=== PATIENT | female | born 1950 | race Caucasian/White ===

== ENCOUNTER 2018-06-23 07:25 | Observation (INO) ==
[2018-06-23] MEDS ORDERED: Aspirin 325 MG Tablet PO ONE (07:48)
--- NOTE | 2018-06-23 07:54 | ED ---
HPI General Chief complaint: Chest Pain Stated complaint: Chest pain Time Seen by Provider: 06/23/18 07:29 Source: patient Mode of arrival: ambulatory Limitations: no limitations History of Present Illness HPI narrative: 67yo F with morbid obesity, former cig smoker, melanoma s/p incision not on any treatment here with c/o chest pain that is intermittent. Said she had a feeling that an elephant was sitting her her chest yesterday. It is pressure, left sided, nonradiating and associated with sob. Intermittent pain, moderate severity. Took her blood pressure yesterday and it was very elevated which may her anxious. Took it today and also elevated. Denies history of elevated blood pressure. +Dry cough. Denies any fever, n/v, abdominal pain, focal weakness or numbness. Denies any history of PE, DVT, hemoptysis, recent surgery. Related Data Home Medications Medication Instructions Recorded Confirmed citalopram [Celexa] 20 mg PO DAILY 06/24/18 06/24/18 Allergies Allergy/AdvReac Type Severity Reaction Status Date / Time diatrizoate meglumine Allergy Severe SNEEZING Verified 06/23/18 07:41 gadobenic acid Allergy Severe SNEEZING Verified 06/23/18 07:41 gadodiamide Allergy Severe SNEEZING Verified 06/23/18 07:41 gadoteridol Allergy Severe SNEEZING Verified 06/23/18 07:41 iodixanol Allergy Severe SNEEZING Verified 06/23/18 07:41 iohexol Allergy Severe SNEEZING Verified 06/23/18 07:41 propoxyphene Allergy Severe RASH,FEVER Verified 06/23/18 07:41 Review of Systems ROS: all other systems reviewed are negative [facility] Medical History Medical History Anxiety (Acute) H/O: hysterectomy (Acute) Melanoma in situ of back (Acute) Sleep apnea (Acute) Surgical History Surgical History Gastric bypass status for obesity (Acute) H/O hernia repair (Acute) Social History Social History Substance History: No History of Abuse Second Hand Smoke Exposure: No Smoking Status: Former smoker Tobacco Type: Cigarettes How Often Do You Have a Drink Containing Alcohol: Monthly or less Recent Travel in [facility] within the Last 8 Weeks: No Recent Out of Country Travel within the Last 8 Weeks: No Exam Narrative Exam Narrative: GENERAL: 67yo F in mild distress. SKIN: Focused skin assessment warm/dry. HEAD: Atraumatic. Normocephalic. EYES: Pupils equal and round. No scleral icterus. No injection or drainage. ENT: No nasal bleeding or discharge. Mucous membranes pink and moist. NECK: Trachea midline. No JVD. CARDIOVASCULAR: Regular rate and rhythm. No murmur appreciated. RESPIRATORY: No accessory muscle use. Clear to auscultation. Breath sounds equal bilaterally. GASTROINTESTINAL: Abdomen soft, non-tender, nondistended. MUSCULOSKELETAL: No obvious deformities. No clubbing. No cyanosis. No edema. NEUROLOGICAL: Awake and alert. No obvious cranial nerve deficits. Motor grossly within normal limits in all extremities. Sensation intact. Normal speech. PSYCHIATRIC: Appropriate mood and affect; insight and judgment normal. Course Initial Documented Vital Signs Temperature 99 F 06/23/18 07:37 Pulse Rate 77 06/23/18 07:37 Respiratory Rate 24 06/23/18 07:37 Blood Pressure 134/100 H 06/23/18 07:37 Pulse Oximetry 97 06/23/18 07:37 Last Documented Vital Signs Temperature 96.9 F L 06/24/18 12:00 Pulse Rate 79 06/24/18 12:00 Respiratory Rate 20 06/24/18 12:00 Blood Pressure 161/72 H 06/24/18 12:00 Pulse Oximetry 93 L 06/24/18 12:00 Medical Decision Making [facility] Narrative Medical decision making narrative: 67yo F with morbid obesity here with chest pain and elevated blood pressure at home. Said chest discomfort started on Thursday after a dear friend . However, started checking her blood pressure at home yesterday. She has significant cardiac comorbidities so will obtain, labs including cardiac enzyme and CXR. Denies any sliver lapper or MO before. Never had this chest pain. Labs reviewed, no leukocytosis. H/H normal. BMP unremarkable. Troponin negative. CXR showed cardiomegaly with mild interstitial edema. Pt said she gets sob with walking but she is also morbidly obese. Will add BNP. Pt given aspirin and 1 sublingual nitro which helped with pain. At this time, will admit pt for observation for chest pain center for serial EKG and cardiac enzyme. Discussed with Dr. Crow and accepted to his service. Medical Screen Exam Complete: Yes Emergency Medical Condition: Yes Differential Diagnosis Differential Diagnosis: ACS vs. GERD vs. anxiety vs. musculoskeletal pain Lab Data Result diagrams: 06/23/18 08:15 06/23/18 08:15 Lab Results 06/23/18 06/23/18 06/23/18 Range/Units 06:46 08:15 08:15 CBC w Diff Auto diff final WBC 7.3 (4.0-11.0) th/mm3 RBC 4.62 (4.00-5.30) mil/mm3 Hgb 12.4 (11.6-15.3) gm/dL Hct 37.6 (35.0-46.0) % MCV 81.4 (80.0-100.0) fL MCH 27.0 (27.0-34.0) pg MCHC 33.1 (32.0-36.0) % RDW 13.4 (11.6-17.2) % Plt Count 315 (150-450) th/mm3 MPV 8.3 (7.0-11.0) fL Neut % (Auto) 63.0 (16.0-70.0) % Lymph % (Auto) 27.2 (9.0-44.0) % [place] % (Auto) 5.8 (0.0-8.0) % Eos % (Auto) 3.0 (0.0-4.0) % Baso % (Auto) 1.0 (0.0-2.0) % Neut # (Auto) 4.6 (1.8-7.7) th/mm3 Lymph # (Auto) 2.0 (1.0-4.8) th/mm3 [place] # (Auto) 0.4 (0.0-0.9) th/mm3 Eos # (Auto) 0.2 (0.0-0.4) th/mm3 Baso # (Auto) 0.1 (0.0-0.2) th/mm3 WBC Differential . Differential Comment . PT 10.0 (9.8-11.6) sec INR 1.0 Ratio APTT 27.4 (23.4-31.7) sec Sodium (136-145) meq/L Potassium (3.5-5.1) meq/L Chloride (98-107) meq/L Carbon Dioxide (21.0-32.0) meq/L Anion Gap (5-15) meq/L BUN (7-18) mg/dL Creatinine (0.50-1.00) mg/dL Estimated GFR (>89) mL/min Random Glucose (74-106) mg/dL Calcium (8.5-10.1) mg/dL Total Creatine Kinase (26-192) U/L Troponin I (0.02-0.05) ng/mL B-Natriuretic Peptide (0-100) pg/mL Triglycerides 83 (42-150) mg/dL Cholesterol 158 (120-200) mg/dL LDL Cholesterol, Calc 78 (0-99) mg/dL HDL Cholesterol 63.8 H (40.0-60.0) mg/dL Cholesterol/HDL Ratio 2.47 Ratio 06/23/18 06/23/18 06/23/18 Range/Units 08:15 08:15 11:50 CBC w Diff WBC (4.0-11.0) th/mm3 RBC (4.00-5.30) mil/mm3 Hgb (11.6-15.3) gm/dL Hct (35.0-46.0) % MCV (80.0-100.0) fL MCH (27.0-34.0) pg MCHC (32.0-36.0) % RDW (11.6-17.2) % Plt Count (150-450) th/mm3 MPV (7.0-11.0) fL Neut % (Auto) (16.0-70.0) % Lymph % (Auto) (9.0-44.0) % [place] % (Auto) (0.0-8.0) % Eos % (Auto) (0.0-4.0) % Baso % (Auto) (0.0-2.0) % Neut # (Auto) (1.8-7.7) th/mm3 Lymph # (Auto) (1.0-4.8) th/mm3 [place] # (Auto) (0.0-0.9) th/mm3 Eos # (Auto) (0.0-0.4) th/mm3 Baso # (Auto) (0.0-0.2) th/mm3 WBC Differential Differential Comment PT (9.8-11.6) sec INR Ratio APTT (23.4-31.7) sec Sodium 139 (136-145) meq/L Potassium 4.6 (3.5-5.1) meq/L Chloride 106 (98-107) meq/L Carbon Dioxide 26.0 (21.0-32.0) meq/L Anion Gap 7 (5-15) meq/L BUN 17 (7-18) mg/dL Creatinine 0.94 (0.50-1.00) mg/dL Estimated GFR 59 L (>89) mL/min Random Glucose 114 H (74-106) mg/dL Calcium 8.7 (8.5-10.1) mg/dL Total Creatine Kinase 68 (26-192) U/L Troponin I Less than 0.02 L Less than 0.02 L (0.02-0.05) ng/mL B-Natriuretic Peptide 30 (0-100) pg/mL Triglycerides (42-150) mg/dL Cholesterol (120-200) mg/dL LDL Cholesterol, Calc (0-99) mg/dL HDL Cholesterol (40.0-60.0) mg/dL Cholesterol/HDL Ratio Ratio 06/23/ Range/Units 14:00 CBC w Diff WBC (4.0-11.0) th/mm3 RBC (4.00-5.30) mil/mm3 Hgb (11.6-15.3) gm/dL Hct (35.0-46.0) % MCV (80.0-100.0) fL MCH (27.0-34.0) pg MCHC (32.0-36.0) % RDW (11.6-17.2) % Plt Count (150-450) th/mm3 MPV (7.0-11.0) fL Neut % (Auto) (16.0-70.0) % Lymph % (Auto) (9.0-44.0) % [place] % (Auto) (0.0-8.0) % Eos % (Auto) (0.0-4.0) % Baso % (Auto) (0.0-2.0) % Neut # (Auto) (1.8-7.7) th/mm3 Lymph # (Auto) (1.0-4.8) th/mm3 [place] # (Auto) (0.0-0.9) th/mm3 Eos # (Auto) (0.0-0.4) th/mm3 Baso # (Auto) (0.0-0.2) th/mm3 WBC Differential Differential Comment PT (9.8-11.6) sec INR Ratio APTT (23.4-31.7) sec Sodium (136-145) meq/L Potassium (3.5-5.1) meq/L Chloride (98-107) meq/L Carbon Dioxide (21.0-32.0) meq/L Anion Gap (5-15) meq/L BUN (7-18) mg/dL Creatinine (0.50-1.00) mg/dL Estimated GFR (>89) mL/min Random Glucose (74-106) mg/dL Calcium (8.5-10.1) mg/dL Total Creatine Kinase 62 (26-192) U/L Troponin I Less than 0.02 L (0.02-0.05) ng/mL B-Natriuretic Peptide (0-100) pg/mL Triglycerides Cancelled (42-150) mg/dL Cholesterol Cancelled (120-200) mg/dL LDL Cholesterol, Calc Cancelled (0-99) mg/dL HDL Cholesterol Cancelled (40.0-60.0) mg/dL Cholesterol/HDL Ratio Cancelled Ratio Imaging Data Radiologist's impression: Chest X-Ray 06/23/18 07:48 CONCLUSION: Cardiomegaly with mild interstitial edema. ECG Data EKG Prior to Arrival: No Attestation: I personally reviewed and interpreted this ECG as follows: Interpretation: NSR 78bpm. Normal axis. RBBB. Unchanged from prior. PA interval 139ms. No significant ST elevation or depression. Discharge Plan Discharge Disposition Patient Disposition: ED Admit(ED Internal Use Only) Discharge Order Discharge Orders: ED Use Only Admit Order (Routine); Ordered 06/23/18 Ordered By: Nery Julio Discharge Details Diagnosis: Chest pain Physicians Team ED Provider: Nery Julio Primary Care Provider: UNKNOWN, Attending Provider: Wes Crow Status ED Status: Left Department Discharge Information Discharge Date/Time: 06/23/18 11:20
--- NOTE | 2018-06-23 08:32 | XR ---
EXAM DATE: 06/23/2018 8:22 AM EST AGE/SEX: 67 years / Female INDICATIONS: Chest pain /pressure x 2 days. CLINICAL DATA: This is the patient's initial encounter. Patient reports that signs and symptoms have been present for 2 days and indicates a pain score of 7/10. MEDICAL/SURGICAL HISTORY: . Sleep apnea. Former smoker. Hysterectomy. Gastric bypass. Hernia repair. COMPARISON: No prior exams available for comparison. FINDINGS: The heart is enlarged. Mild interstitial edema is present. There is minimal elevation of the right he midiaphragm. There is no pneumothorax. Mild degenerative changes about the right shoulder. CONCLUSION: Cardiomegaly with mild interstitial edema. Electronically signed by: Heriberto Mcgarry MD Board Certified Radiologist 06/23/2018 8:30 AM EST
[2018-06-23 08:38] LABS: Activated Partial Thrombo Time 27.4 sec (23.4-31.7)
[2018-06-23 08:42] LABS: Baso # (Auto) 0.1 th/mm3 (0.0-0.2); Eos # (Auto) 0.2 th/mm3 (0.0-0.4); Hematocrit 37.6 % (35.0-46.0); Hemoglobin 12.4 gm/dL (11.6-15.3); Lymph % (Auto) 27.2 % (9.0-44.0); Mean Corpuscular HGB Conc 33.1 % (32.0-36.0); Mean Corpuscular Volume 81.4 fL (80.0-100.0); Mean Platelet Volume 8.3 fL (7.0-11.0); Mono # (Auto) 0.4 th/mm3 (0.0-0.9); Mono % (Auto) 5.8 % (0.0-8.0); Neut # (Auto) 4.6 th/mm3 (1.8-7.7); Platelet Count 315 th/mm3 (150-450); Red Blood Count 4.62 mil/mm3 (4.00-5.30); Red Cell Distribution Width 13.4 % (11.6-17.2); White Blood Count 7.3 th/mm3 (4.0-11.0)
[2018-06-23 08:44] LABS: Chloride 106 meq/L (98-107); Potassium 4.6 meq/L (3.5-5.1); Sodium 139 meq/L (136-145)
[2018-06-23 08:46] LABS: Calcium 8.7 mg/dL (8.5-10.1)
[2018-06-23 08:47] LABS: Anion Gap 7 meq/L (5-15); Blood Urea Nitrogen 17 mg/dL (7-18); Glucose,Random 114 mg/dL (74-106)
[2018-06-23 08:50] LABS: Glomerular Filtration Rate 59 mL/min (>89)
[2018-06-23 11:40] VITALS: RESP 20
--- NOTE | 2018-06-23 12:43 | P.HPIM ---
History of Present Illness Primary Care Physician: UNKNOWN Chief Complaint: chest pain History of Present Illness: This is a 67-year-old female patient with a known medical history of morbid obesity, remote tobacco abuse and melanoma who presented to the ED with complaints of chest pain. Patient states that the pain started yesterday while she was sitting in her chair, the pain was midsternal and was pressure-like in nature, radiated to her left-sided chest and associated with shortness of breath as well as diaphoresis and nausea. She states that the pain lasted a couple minutes and then goes away on its own without any known aggravating or alleviating factors. She states that she checked her blood pressure multiple times yesterday with a reading of systolic in the 160s. She is denies ever having this type of pain before. She states that she did undergo a cardiac stress test over 5 years ago which was reportedly unremarkable. She states that the pain did improve with nitroglycerin although the pain has never totally gone away. Patient denies any recent illness including fever, chills, cough, headache, abdominal pain, nausea, vomiting, diarrhea or dysuria. She does admit that she is been under a lot of stress, states that her best friend has recently roughly 5 days ago and this has been causing a lot of stress on her lately. Patient denies any history of hyperlipidemia. Does admit to a relative remote history of tobacco abuse, quit smoking in 2007. Her father does have a history of cardiovascular disease. She is morbidly obese. Denies ever having a FL in the past or CAD. Does not follow with a single pointed operator. Review of Systems Review of Systems: all other systems reviewed are negative [facility] Medical History Medical History Anxiety (Acute) H/O: hysterectomy (Acute) Melanoma in situ of back (Acute) Sleep apnea (Acute) Surgical History Surgical History Gastric bypass status for obesity (Acute) H/O hernia repair (Acute) Social History Social History Substance History: No History of Abuse Second Hand Smoke Exposure: No Smoking Status: Former smoker Tobacco Type: Cigarettes How Often Do You Have a Drink Containing Alcohol: Monthly or less Recent Travel in [place] within the Last 8 Weeks: No Immunization History Tetanus Immunization: <5 Years Medications and Allergies Allergies Allergy/AdvReac Type Severity Reaction Status Date / Time diatrizoate meglumine Allergy Severe SNEEZING Verified 06/23/18 07:41 gadobenic acid Allergy Severe SNEEZING Verified 06/23/18 07:41 gadodiamide Allergy Severe SNEEZING Verified 06/23/18 07:41 gadoteridol Allergy Severe SNEEZING Verified 06/23/18 07:41 iodixanol Allergy Severe SNEEZING Verified 06/23/18 07:41 iohexol Allergy Severe SNEEZING Verified 06/23/18 07:41 propoxyphene Allergy Severe RASH,FEVER Verified 06/23/18 07:41 Home Medications Medication Instructions Recorded Confirmed Type escitalopram oxalate 20 mg PO DAILY 06/23/18 06/23/18 History Active Medications: Active Medications Escitalopram Oxalate (Lexapro) 20 mg PO DAILY JH Heparin Sodium (Porcine) (Heparin Inj) 5,000 units SQ Q12H [facility] Sodium Chloride (Ns Inj) 1,000 mls @ 100 mls/hr IV.CONT .Q10H [facility] Nitroglycerin (Nitrostat Sl) 0.4 mg SL Q5M PRN PRN Reason: CHEST PAIN Last Admin: 06/23/18 08:18 Dose: 0.4 mg Nitroglycerin (Nitrostat Sl) 0.4 mg SL Q5M PRN PRN Reason: CHEST PAIN Sodium Chloride (Ns Flush) 2 ml IV.FLUSH BID JH Sodium Chloride (Ns Flush) 2 ml IV.FLUSH PRN PRN PRN Reason: FLUSH AFTER USING IV ACCESS Physical Exam Vital signs: Vital Signs 06/23/18 07:37 06/23/18 08:10 06/23/18 08:26 Temperature 99 F Pulse Rate 77 71 Respiratory Rate 18 19 Blood Pressure 134/100 H 121/84 Pulse Oximetry 97 95 06/23/18 08:28 06/23/18 09:03 06/23/18 09:55 Temperature Pulse Rate 70 71 71 Respiratory Rate 18 18 20 Blood Pressure 96/68 L 117/93 H 114/81 Pulse Oximetry 96 95 96 06/23/18 10:20 06/23/18 11:20 06/23/18 11:30 Temperature 99.3 F Pulse Rate 69 70 71 Respiratory Rate 22 20 20 Blood Pressure 128/79 100/78 114/69 Pulse Oximetry 95 96 94 L Intake & Output 06/22/18 06/23/18 06/23/18 18:59 06:59 18:59 Weight 143.5 kg Narrative: GENERAL: Well-developed, morbidly obese female patient in NAD. SKIN: Warm and dry. No rash. HEAD: Normocephalic. Atraumatic. EYES: Pupils equal and round. No scleral icterus. No injection or drainage. ENT: No nasal bleeding or discharge. Mucous membranes pink and moist. NECK: Supple. Trachea midline. CARDIOVASCULAR: Regular rate and rhythm. S1, S2 noted. No murmur appreciated. RESPIRATORY: No accessory muscle use. Clear to auscultation. Breath sounds equal bilaterally. GASTROINTESTINAL: Abdomen soft, non-tender, nondistended. Normoactive bowel sounds x4. MUSCULOSKELETAL: No obvious deformities. Extremities without clubbing, cyanosis , or edema. NEUROLOGICAL: Awake and alert. No obvious cranial nerve deficits. Motor grossly within normal limits. 5/5 muscle strength in bilateral upper and lower extremities. Normal speech. PSYCHIATRIC: Appropriate mood and affect; insight and judgment normal. Results Labs CBC & Chem 7: 06/23/18 08:15 06/23/18 08:15 Imaging Impressions Chest X-Ray 06/23/18 07:48 CONCLUSION: Cardiomegaly with mild interstitial edema. Caprini VTE Risk Assessment Caprini VTE Risk Assessment: Moderate/High Risk (score >= 2) Caprini Risk Assessment Model: Point Value = 1 Point Value = 2 Point Value = 3 Point Value = 5 Age 41-60 Minor surgery BMI > 25 kg/m2 Swollen legs Varicose veins or History of unexplained or recurrent spontaneous Oral contraceptives or hormone replacement Sepsis (< 1 month) Serious lung disease, including pneumonia (< 1 month) Abnormal pulmonary function Acute myocardial infarction Congestive heart failure (< 1 month) History of inflammatory bowel disease Medical patient at bed rest Age 61-74 Arthroscopic surgery Major open surgery (> 45 min) Laparoscopic surgery (> 45 min) Malignancy Confined to bed (> 72 hours) Immobilizing plaster cast Central venous access Age >= 75 History of VTE Family history of VTE Factor V Leiden Prothrombin [id number] Lupus anticoagulant Anticardiolipin antibodies Elevated serum homocysteine Heparin-induced thrombocytopenia Other congenital or acquired thrombophilia Stroke (< 1 month) Elective arthroplasty Hip, pelvis, or leg fracture Acute spinal cord injury (< 1 month) Prophylaxis Regimen: Total Risk Factor Score Risk Level Prophylaxis Regimen 0-1 Low Early ambulation 2 Moderate Order ONE of the following: *Sequential Compression Device (SCD) *Heparin 5000 units SQ BID 3-4 Higher Order ONE of the following medications: *Heparin 5000 units SQ TID *Enoxaparin/Lovenox 40 mg SQ daily (WT < 150 kg, CrCl > 30 mL/min) *Enoxaparin/Lovenox 30 mg SQ daily (WT < 150 kg, CrCl > 10-29 mL/min) *Enoxaparin/Lovenox 30 mg SQ BID (WT < 150 kg, CrCl > 30 mL/min) AND/OR *Sequential Compression Device (SCD) 5 or more Highest Order ONE of the following medications: *Heparin 5000 units SQ TID (Preferred with Epidurals) *Enoxaparin/Lovenox 40 mg SQ daily (WT < 150 kg, CrCl > 30 mL/min) *Enoxaparin/Lovenox 30 mg SQ daily (WT < 150 kg, CrCl > 10-29 mL/min) *Enoxaparin/Lovenox 30 mg SQ BID (WT < 150 kg, CrCl > 30 mL/min) AND *Sequential Compression Device (SCD) Assessment and Plan Plan This is a 67-year-old morbidly obese patient who presented to the ED with complaints of chest pain. Chest pain -Patient has been admitted the chest pain center for observation. Serial EKGs and serial troponins been ordered for ruling out ACS purposes. Initial troponin flat. Continue to monitor trend. -EKG reviewed showing sinus rhythm with right bundle branch block. No ST changes to indicate any ischemia. -Chest x-ray does show some cardiomegaly with mild interstitial edema. BNP has been added to labs. -Patient was given aspirin and nitroglycerin in the ED which did help with the pain. Will continue nitroglycerin as needed. -CBC and BMP reviewed, essentially unremarkable. Will add lipid panel to labs. Follow. -Patient admits to undergoing a stress test over 5 years ago. If ACS ruled out with serial EKGs and serial troponins, patient will undergo a cardiac stress test in the morning. -Patient does have coronary artery disease risk factors including morbidly obese , significant family history of cardiovascular disease, remote tobacco abuse. -Patient is stable at this time and agreeable to plan. Further hospitalization and treatment plan will depend on nuclear imaging results. DVT prophylaxis: SCDs. Heparin. Discussed with patient, patient's son, bedside RN and Dr. luong.
[2018-06-23 12:58] LABS: Creatine Kinase 68 U/L (26-192)
[2018-06-23] MEDS: Sod Chloride 0.9% Inj 1,000 ML IV.CONT SCH ×2 (13:01→21:50)
[2018-06-23] MEDS: Heparin - SQ 10,000 UNITS/ML Vial SQ SCH (13:03)
[2018-06-23 14:47] LABS: Creatine Kinase 62 U/L (26-192)
[2018-06-23] MEDS ORDERED: Regadenoson Inj 0.4 MG/5 ML Syringe IV.PUSH ONE (16:02)
[2018-06-23 16:18] LABS: Chol/HDL Ratio 2.47 Ratio; HDL Cholesterol 63.8 mg/dL (40.0-60.0)
[2018-06-24] MEDS: Heparin - SQ 10,000 UNITS/ML Vial SQ SCH ×3 (00:14→23:40)
[2018-06-24] MEDS: Sod Chloride 0.9% Inj 1,000 ML IV.CONT SCH ×2 (07:53→20:59)
--- NOTE | 2018-06-24 11:39 | P.PNIM ---
Subjective Interval history: Follow-up chest pain. Patient seen and examined, sitting on side of bed comfortably no apparent distress. Apparently patient lost her IV and was unable to perform the cardiac stress test today. Will allow to eat today and perform cardiac stress test in the morning. Vascular team into place IV tonight. Vital signs are stable. Afebrile. Chest pain is actually resolved at this time. Intermittent chest discomfort during the day although has come and gone. Physical Exam Vital signs: Vital Signs 06/23/18 12:01 06/23/18 16:00 06/23/18 20:00 Temperature 98.3 F 97.5 F L Pulse Rate 67 68 71 Respiratory Rate 20 20 Blood Pressure 118/70 114/68 Pulse Oximetry 94 L 92 L 06/24/18 00:00 06/24/18 04:00 06/24/18 08:00 Temperature 98.2 F 97.2 F L 97.5 F L Pulse Rate 70 74 71 Respiratory Rate 20 20 20 Blood Pressure 138/70 155/70 H 162/93 H Pulse Oximetry 94 L 94 L 94 L Intake & Output 06/23/18 06/24/18 06/24/18 18:59 06:59 18:59 Intake Total 360 / 360 1000 / 1000 1000 / 1000 Balance 360 / 360 1000 / 1000 1000 / 1000 Weight 142.428 kg 145.5 kg Intake: IV 1000 / 1000 1000 / 1000 NS Inj 1,000 ML @ 100 mls/hr IV 1000 / 1000 1000 / 1000 .CONT .Q10H [facility] Rx#:[id number] Oral 360 / 360 0 / 0 Other: # Voids 2 3 Date of Last Bowel Movement 06/23/18 06/23/18 # Bowel Movements 1 1 Weight On Admission 142.428 kg Narrative: GENERAL: Well-developed, morbidly obese female patient in [facility]. SKIN: Warm and dry. No rash. HEAD: Normocephalic. Atraumatic. EYES: Pupils equal and round. No scleral icterus. No injection or drainage. ENT: No nasal bleeding or discharge. Mucous membranes pink and moist. NECK: Supple. Trachea midline. CARDIOVASCULAR: Regular rate and rhythm. S1, S2 noted. No murmur appreciated. No reproducible chest pain to palpation RESPIRATORY: No accessory muscle use. Clear to auscultation. Breath sounds equal bilaterally. GASTROINTESTINAL: Abdomen soft, non-tender, nondistended. Normoactive bowel sounds x4. MUSCULOSKELETAL: No obvious deformities. Extremities without clubbing, cyanosis , or edema. NEUROLOGICAL: Awake and alert. No obvious cranial nerve deficits. Motor grossly within normal limits. 5/5 muscle strength in bilateral upper and lower extremities. Normal speech. PSYCHIATRIC: Appropriate mood and affect; insight and judgment normal. Results Labs CBC & Chem 7: 06/23/18 08:15 06/23/18 08:15 Assessment and Plan Plan This is a 67-year-old morbidly obese patient who presented to the ED with complaints of chest pain. Chest pain -Patient has been admitted the chest pain center for observation. -Serial EKGs and serial troponins been ordered for ruling out ACS purposes. Troponin trend flat. -EKG reviewed showing sinus rhythm with right bundle branch block. No ST changes to indicate any ischemia. -Continue on cardiac telemetry, monitor for any arrhythmias overnight. -Chest x-ray does show some cardiomegaly with mild interstitial edema. BNP normal. -Patient was given aspirin and nitroglycerin in the ED which did help with the pain. Will continue nitroglycerin as needed. -CBC and BMP reviewed, essentially unremarkable. Lipid panel normal. -Patient admits to undergoing a stress test over 5 years ago. -ACS ruled out with serial EKGs and serial troponins, patient will undergo a cardiac stress test in the morning. -Patient does have coronary artery disease risk factors including morbidly obese , significant family history of cardiovascular disease, remote tobacco abuse. -Patient is stable at this time and agreeable to plan. Further hospitalization and treatment plan will depend on nuclear imaging results. DVT prophylaxis: SCDs. Heparin. Discussed with patient, bedside RN and Dr. luong. Progress Note: Quality VTE Deep Vein Thrombosis/Pulmonary Embolism Present on Admission: No
--- NOTE | 2018-06-24 12:28 | ECG ---
Date Performed: 06/23/2018 Time Performed: 11:57:13 PTAGE: 67 years EKG: Sinus rhythm RIGHT BUNDLE BRANCH BLOCK ABNORMAL ECG No significant change PREVIOUS TRACING : 06/23/2018 07.30 DOCTOR: Franki Cisneros Interpretating Date/Time 06/24/2018 12:27:05
--- NOTE | 2018-06-24 12:28 | ECG ---
Date Performed: 06/23/2018 Time Performed: 14:06:11 PTAGE: 67 years EKG: Sinus rhythm RIGHT BUNDLE BRANCH BLOCK ABNORMAL ECG No significant change PREVIOUS TRACING : 06/23/2018 11.57 DOCTOR: Franki Cisneros Interpretating Date/Time 06/24/2018 12:26:33
--- NOTE | 2018-06-24 12:29 | ECG ---
Date Performed: 06/23/2018 Time Performed: 07:30:07 PTAGE: 67 years EKG: Sinus rhythm RIGHT BUNDLE BRANCH BLOCK ABNORMAL ECG No significant change PREVIOUS TRACING : 01/02/2016 09.04 DOCTOR: Franki Cisneros Interpretating Date/Time 06/24/2018 12:28:02
[2018-06-25] MEDS: Sod Chloride 0.9% Inj 1,000 ML IV.CONT SCH (04:47)
[2018-06-25 09:05] VITALS: BP 120/80; TEMP 98.1; O2SAT 93
[2018-06-25] MEDS ORDERED: Regadenoson Inj 0.4 MG/5 ML Syringe IV.PUSH ONE (09:36)
--- NOTE | 2018-06-25 10:19 | NM ---
EXAM DATE: 06/25/2018 10:13 AM EST AGE/SEX: 67 years / Female INDICATIONS:Angina. . Left chest pain with dyspnea. CLINICAL DATA: This is the patient's initial encounter. Patient reports that signs and symptoms have been present for 1 day and indicates a pain score of 7/10. MEDICAL/SURGICAL HISTORY: . Melanoma. Hysterectomy. Gastric bypass. Inguinal hernia repair. COMPARISON: No prior exams available for comparison. DOSE: 11 mCi Tc 99m Myoview at rest 35 mCi [id number] at stress 0.4 mg Lexiscan STRESS SYMPTOMS: Chest pain and nausea. EJECTION FRACTION: 61 % TECHNIQUE: The patient underwent pharmacologic stress with infusion of prescribed dose. Continuous ECG tracing was monitored during stress. Gated SPECT imaging was performed after stress and conventi onal SPECT imaging was performed at rest. The examination was performed on a SPECT/CT scanner, both attenuation and non-corrected datasets were reviewed. FINDINGS: Distribution: The maximum perfused segment at stress is in the anterolateral wall. Perfusion Study: The pattern of perfusion at stress demonstrates an area of apparent reduction in p erfusion to anterior wall which demonstrates questionable mild redistribution on the attenuation charles ected images. There is significant breast attenuation artifact and this could potentially be artifact ually created by attenuation correction. The nonattenuation corrected images do not demonstrate any s ignificant ischemia at this site. Similar finding is seen involving the posterior basal wall which is also questionable most likely related to attenuation artifact. Gated Study: There are intact wall motion and wall thickening without hypokinetic or dyskinetic segm ents. The ejection fraction is calculated at 61%. RISK CATEGORY: Low (<1% Annual Mortality Rate) CONCLUSION: 1. Somewhat limited evaluation due to attenuation artifacts as above without any significant ischemi a. Electronically signed by: Mehnaz Redmond MD Board Certified Radiologist 06/25/2018 10:17 AM EST
--- NOTE | 2018-06-25 10:30 | TR ---
Date Performed: 06/25/2018 Time Performed: 09:19:01 DOCTOR: Franki Cisneros DRUG LIST: CLINICAL HISTORY: REASON FOR TEST: Chest pain REASON FOR ENDING: OBSERVATION: CONCLUSION: Lexiscan stress test was performed under standard four minute protocol. Radionuclide was injected one minute prior to ending the test. No electrocardiographic abormalities were present to suggest ischemia. Nuclear imaging and interpretation are pending. COMMENTS:
--- NOTE | 2018-06-25 11:07 | P.PNIM ---
Subjective Interval history: Follow up chest pain. Patient seen and examined, lying in bed comfortably status post myocardial perfusion scan. Report reviewed by vacation planner derrick barge operator Dr. Marina. Suggesting to start Imdur and will dc home and medically manage. Patient is agreeable and doing well. All symptoms have improved. Will dc home. RX as written. Diet and activity as tolerated. Physical Exam Vital signs: Vital Signs 06/24/18 12:00 06/24/18 16:00 06/24/18 20:00 Temperature 96.9 F L 97.6 F 98.2 F Pulse Rate 79 73 77 Respiratory Rate 20 20 20 Blood Pressure 161/72 H 150/73 H 122/70 Pulse Oximetry 93 L 95 94 L 06/25/18 00:00 06/25/18 04:00 06/25/18 08:00 Temperature 97.4 F L 98.1 F Pulse Rate 70 80 77 Respiratory Rate 20 20 Blood Pressure 149/67 H 120/80 Pulse Oximetry 94 L 93 L Intake & Output 06/24/18 06/25/18 06/25/18 18:59 06:59 18:59 Intake Total 1999 60 / 60 Balance 1999 60 60 Weight 144.2 kg Intake: IV 1999 NS Inj 1,000 ML @ 100 mls/hr IV 1999 .CONT .Q10H JH Rx#:[id number] Oral Other: # Voids 3 Date of Last Bowel Movement 06/23/18 06/23/18 Narrative: GENERAL: Well-developed, morbidly obese female patient in [facility]. SKIN: Warm and dry. No rash. HEAD: Normocephalic. Atraumatic. EYES: Pupils equal and round. No scleral icterus. No injection or drainage. ENT: No nasal bleeding or discharge. Mucous membranes pink and moist. NECK: Supple. Trachea midline. CARDIOVASCULAR: Regular rate and rhythm. S1, S2 noted. No murmur appreciated. No reproducible chest pain to palpation RESPIRATORY: No accessory muscle use. Clear to auscultation. Breath sounds equal bilaterally. GASTROINTESTINAL: Abdomen soft, non-tender, nondistended. Normoactive bowel sounds x4. MUSCULOSKELETAL: No obvious deformities. Extremities without clubbing, cyanosis , or edema. NEUROLOGICAL: Awake and alert. No obvious cranial nerve deficits. Motor grossly within normal limits. 5/5 muscle strength in bilateral upper and lower extremities. Normal speech. PSYCHIATRIC: Appropriate mood and affect; insight and judgment normal. Results Labs CBC & Chem 7: 06/23/18 08:15 06/23/18 08:15 Imaging Imaging: Impressions Myocardial Perfusion Scan Nuc Med 06/25/18 06:00 CONCLUSION: 1. Somewhat limited evaluation due to attenuation artifacts as above without any significant ischemia. Assessment and Plan Plan This is a 67-year-old morbidly obese patient who presented to the ED with complaints of chest pain. Chest pain. Resolved. -Patient has been admitted the chest pain center for observation. -Serial EKGs and serial troponins been ordered for ruling out ACS purposes. Troponin trend flat. -EKG reviewed showing sinus rhythm with right bundle branch block. No ST changes to indicate any ischemia. -Continue on cardiac telemetry, monitor for any arrhythmias overnight. -Chest x-ray does show some cardiomegaly with mild interstitial edema. BNP normal. -Patient was given aspirin and nitroglycerin in the ED which did help with the pain. Will continue nitroglycerin as needed. -CBC and BMP reviewed, essentially unremarkable. Lipid panel normal. -Patient admits to undergoing a stress test over 5 years ago. -ACS ruled out with serial EKGs and serial troponins, patient underwent a cardiac stress test. -Patient does have coronary artery disease risk factors including morbidly obese , significant family history of cardiovascular disease, remote tobacco abuse. -Report reviewed from myocardial perfusion scan. Showing adequate EF. Some questionable artifact vs redistribution. Spoke to Dr. Marina vacation planner for cardiology and recommending medical management with Imdur. Patient is stable to go home. All chest pain and symptoms have improved. Encouraged to return to ED if symptoms worsen or persist. DVT prophylaxis: SCDs. Heparin. Discussed with patient, bedside RN and Dr. luong. Dc home. Rx as written. Diet and activity as tolerated. Follow up PCP. Progress Note: Quality VTE Deep Vein Thrombosis/Pulmonary Embolism Present on Admission: No
[2018-06-25 11:25] VITALS: PULSE 74
[2018-06-25] MEDS: Heparin - SQ 10,000 UNITS/ML Vial SQ SCH (11:51)
== END 2018-06-25 13:16 | disposition home or self-care (01) ==
LOC: PHEDA 07:25 → PHED 07:25 → PH3 11:20
PROVIDERS: ADMIT Hospitalist; ATTEND Hospitalist
DX: R61 Generalized hyperhidrosis; F41.9 Anxiety disorder, unspecified; Z87.891 Personal history of nicotine dependence; I45.10 Unspecified right bundle-branch block; I20.9 Angina pectoris, unspecified; I51.7 Cardiomegaly; R06.02 Shortness of breath; R11.0 Nausea; G47.30 Sleep apnea, unspecified; Z85.820 Personal history of malignant melanoma of skin; R07.89 Other chest pain; E66.01 Morbid (severe) obesity due to excess calories
CPT/HCPCS: 71010; 71045; 76937; 78452; 80048; 80061; 82550; 83520; 83880; 84484; 85025; 85610; 85730; 93005; 93017; 96360; 96361; 99285; A9502; G0378; J2785; J7030; Q9969